=== PATIENT | male | born 1960 | race Two or more races ===

== ENCOUNTER 2024-03-08 20:22 | Emergency (ER) | payer OTHER ==
[~2024-03-08] VITALS: Ht 170.2 cm; Wt 79.0 kg
[2024-03-08 20:53] VITALS: BP 148/91; PULSE 114; RESP 18; TEMP 98.8; O2SAT 97
[2024-03-08] MEDS: diphenhdrAMINE HCL 50 MG/1 ML VL IM ONE (22:15)
[2024-03-08] MEDS: DexAMETHasone SOD PHOS 10MG/1ML VIAL INJ IM ONE (22:16)
== END 2024-03-08 22:50 | disposition home or self-care (01) ==
LOC: ER 20:22
DX: T78.40XA Allergy, unspecified, initial encounter (principal); L50.9 Urticaria, unspecified; I10 Essential (primary) hypertension; X58.XXXA Exposure to other specified factors, initial encounter
CPT/HCPCS: 96372; 99284; J1100; J1200

== ENCOUNTER 2024-03-12 15:04 | Emergency (ER) | payer OTHER ==
[~2024-03-12] VITALS: Ht 170.2 cm; Wt 79.0 kg
[2024-03-12 16:08] VITALS: BP 145/91; PULSE 110; RESP 19; TEMP 97.9; O2SAT 97
[2024-03-12] MEDS: EPINEPHrine HCL 1 MG/1 ML AMP SC ONE (17:00)
[2024-03-12] MEDS: methylPREDNISolone SOD SUCC 125 MG/2 ML VL IM ONE (17:01)
[2024-03-12] MEDS ORDERED: PRED20TA2 PO (17:02)
[2024-03-12] MEDS ORDERED: HYDR25CA PO (17:02)
== END 2024-03-12 17:18 | disposition home or self-care (01) ==
LOC: ER 15:04
DX: T78.40XD Allergy, unspecified, subsequent encounter (principal); L50.9 Urticaria, unspecified; I10 Essential (primary) hypertension; X58.XXXD Exposure to other specified factors, subsequent encounter
CPT/HCPCS: 96372; 99284; J0171; J2919